=== PATIENT | female | born 1980 | race Caucasian/White ===

== ENCOUNTER 2020-09-16 18:47 | Emergency (ER) | payer OTHER ==
[~2020-09-16] VITALS: Ht 160 cm; Wt 56.7 kg
[~2020-09-16 18:47] MED LIST: ACID CONTROL75 MG PO; CARISOPRODOL 3350 MG PO; CYMBALTA60 MG; CYMBALTA60 MG PO; NORCO 5-325 TA1 EACH PO; PHENERGAN 25 MG25 MG PO; ZOFRAN 4 MG ORAL4 M1 DIS
[2020-09-16] MEDS ORDERED: WELLBUTRIN SR150 MG PO (19:07)
[2020-09-16] MEDS ORDERED: BUTALB-APAP-CA1 EACH PO (20:14)
[2020-09-16] MEDS ORDERED: ONDANSETRON HCL4 M2 PO (20:14)
[2020-09-16 20:35] VITALS: BP 115/61
== END 2020-09-16 20:32 | disposition home or self-care (01) ==
LOC: M.ERS 18:47
DX: R51.9 Headache, unspecified (principal); R11.2 Nausea with vomiting, unspecified; H53.8 Other visual disturbances; Z98.890 Other specified postprocedural states; Z90.49 Acquired absence of other specified parts of digestive tract; Z79.899 Other long term (current) drug therapy